=== PATIENT | female | born 1955 | race Caucasian/White ===

== ENCOUNTER 2017-04-07 06:47 | Day surgery (SDC) | payer BC ==
[2017-04-02 15:33] VITALS: BMI 34.9
[~2017-04-07 06:47] MED LIST: LACTATED RINGERS 1,000 ML IV SCH
[2017-04-07 07:13] VITALS: TEMP 97.6
[2017-04-07 07:21] LABS: Glucose,Whole Blood 136 mg/dL (75-99)
[2017-04-07] MEDS ORDERED: fentaNYL (PF) 50 MCG/ML 2 ML AMP ONE (07:44)
[2017-04-07] MEDS ORDERED: PROPOFOL 10 MG/ML 20 ML VIAL IV ONE (07:44)
--- NOTE | 2017-04-07 07:56 | P.GSHP ---
History of Present Illness H&P Date: 04/07/17 Chief Complaint: Screening colonoscopy This is a 61-year-old female referred from Dr. Sabina Candelario. Patient rents today for screening colonoscopy. Her last colonoscopy was over 10 years ago. Past Medical History Past Medical History: Diabetes Mellitus, Hyperlipidemia, Hypertension, Sleep Apnea/CPAP/BIPAP History of Any Multi-Drug Resistant Organisms: None Reported Past Surgical History: Cholecystectomy, Hysterectomy Past Anesthesia/Blood Transfusion Reactions: No Reported Reaction Smoking Status: Former smoker - Past Family History Father Family Medical History: Cancer Additional Family Medical History / Comment(s): leukemia Medications and Allergies Home Medications Medication Instructions Recorded Confirmed Type Aspirin [Adult Low Dose Aspirin EC] 81 mg PO DAILY 04/02/17 04/07/17 History Atorvastatin [Lipitor] 20 mg PO Q48H 04/02/17 04/07/17 History Cholecalciferol (Vitamin D3) 1 drop PO DAILY 04/02/17 04/07/17 History [Vitamin D3] Glimepiride [Amaryl] 2 mg PO DAILY 04/02/17 04/07/17 History Losartan Potassium 100 mg PO DAILY 04/02/17 04/07/17 History amLODIPine [Norvasc] 5 mg PO QAM 04/02/17 04/07/17 History metFORMIN HCL [metFORMIN HCL] 1,000 mg PO TID 04/02/17 04/07/17 History Allergies Allergy/AdvReac Type Severity Reaction Status Date / Time suture Allergy Rash/Hives Verified 04/02/17 15:24 Surgical - Exam Vital Signs Temp Pulse Resp BP Pulse Ox 97.6 F 103 H 20 158/60 98 04/07/17 07:06 04/07/17 07:06 04/07/17 07:06 04/07/17 07:06 04/07/17 07:06 - General well developed, no distress - Eyes PERRL - ENT normal pinna - Neck no masses - Respiratory normal expansion - Cardiovascular Rhythm: regular - Abdomen Abdomen: soft, non tender Results - Labs Abnormal Lab Results - Last 24 Hours (Table) 04/07/17 Range/Units 07:11 POC Glucose (mg/dL) 136 H (75-99) mg/dL Assessment and Plan Assessment: We'll perform screening colonoscopy.
--- NOTE | 2017-04-07 08:13 | P.OP ---
Date of Procedure: 04/07/17 Preoperative Diagnosis: Screening colonoscopy Postoperative Diagnosis: Diverticulosis External hemorrhoids Procedure(s) Performed: Colonoscopy Anesthesia: MAC Surgeon: Chad Burton Pathology: none sent Condition: stable Disposition: PACU Description of Procedure: The patient's placed on the endoscopy table in the lateral position. She received IV sedation. Digital rectal exam was performed which revealed external hemorrhoids. Flexible colonoscope was then placed patient anus passed throughout the entire colon. The ileocecal valve was visualized. The cecum, ascending and transverse colon appeared normal. In the descending and sigmoid colon there was evidence of diverticulosis. There is known to diverticulitis. Scope was then brought back the rectum and this appeared normal. Scope was withdrawn for patient.
[2017-04-07 08:44] VITALS: BP 123/81; PULSE 77; RESP 18
--- NOTE | 2017-04-10 09:25 | CDI ---
Dr. Josephine Bonilla, Colonoscopy OP report procedure description states "There is known to diverticulitis", but no documentation of diverticulitis in post operative diagnosis. Please clarify whether the patient is having diverticulitis. Sincerely, Amos Garcia--sergeant of officers Keerthi Floyd MBA, BENEFITS DIRECTOR, [facility] [place], [facility] [phone] [facility]
== END 2017-04-07 08:53 | disposition home or self-care (01) ==
LOC: ORWHC2ENDO 06:47
PROVIDERS: ATTEND Surgery
DX: Z12.11 Encounter for screening for malignant neoplasm of colon (principal); K57.30 Diverticulosis of large intestine without perforation or abscess without bleeding; K64.4 Residual hemorrhoidal skin tags; I10 Essential (primary) hypertension; E78.5 Hyperlipidemia, unspecified; G47.33 Obstructive sleep apnea (adult) (pediatric); E11.9 Type 2 diabetes mellitus without complications; Z91.048 Other nonmedicinal substance allergy status; Z79.84 Long term (current) use of oral hypoglycemic drugs; Z79.82 Long term (current) use of aspirin; Z79.899 Other long term (current) drug therapy; Z87.891 Personal history of nicotine dependence; Z90.49 Acquired absence of other specified parts of digestive tract; Z99.89 Dependence on other enabling machines and devices; Z80.6 Family history of leukemia
CPT/HCPCS: J3010; J2704; G0121

== ENCOUNTER → 2018-01-01 | Outpatient (CLI) | payer BC ==
--- NOTE | 2018-01-04 09:23 | MM ---
Reason for exam: screening (asymptomatic). Last mammogram was performed 4 years ago. History: Patient is postmenopausal. Family history of premenopausal breast cancer in cousin at age 45. Benign excisional biopsy of the right breast, February 04, 2001. Physical Findings: A clinical breast exam by your physician is recommended on an annual basis and results should be correlated with mammographic findings. MG 3D Screening Mammo W/Cad Bilateral CC and MLO view(s) were taken. Prior study comparison: January 06, 2014, bilateral MG screening mammo w CAD. November 26, 2012, bilateral digital screening mammo w/CAD. The breast tissue is heterogeneously dense. This may lower the sensitivity of mammography. Stable benign calcifications. There is no discrete abnormality. No significant changes when compared with prior studies. ASSESSMENT: Benign, BI-RAD 2 RECOMMENDATION: Routine screening mammogram of both breasts in 1 year.
== END | disposition home or self-care (01) ==
LOC: RADMAMWWP 09:31
PROVIDERS: ATTEND Family Medicine
DX: Z12.31 Encounter for screening mammogram for malignant neoplasm of breast (principal)
CPT/HCPCS: 77063; 77067

== ENCOUNTER → 2019-02-14 | Outpatient (CLI) | payer MEDICARE, BC ==
--- NOTE | 2019-02-14 11:28 | MM ---
Reason for exam: screening (asymptomatic). Last mammogram was performed 1 year and 1 month ago. History: Patient is postmenopausal. Family history of premenopausal breast cancer in cousin at age 45. Benign excisional biopsy of the right breast, February 04, 2001. Physical Findings: A clinical breast exam by your physician is recommended on an annual basis and results should be correlated with mammographic findings. MG 3D Screening Mammo W/Cad Bilateral CC and MLO view(s) were taken. Prior study comparison: January 01, 2018, bilateral MG 3d screening mammo w/cad. January 06, 2014, bilateral MG screening mammo w CAD. Benign appearing bilateral calcifications. No suspicious abnormality. No significant changes when compared with prior studies. ASSESSMENT: Benign, BI-RAD 2 RECOMMENDATION: Routine screening mammogram of both breasts in 1 year.
== END | disposition home or self-care (01) ==
LOC: RADMAMWWP 08:36
PROVIDERS: ATTEND Family Medicine
DX: Z12.31 Encounter for screening mammogram for malignant neoplasm of breast (principal)
CPT/HCPCS: 77063; 77067

== ENCOUNTER → 2019-08-22 | Outpatient (CLI) | payer MEDICARE, BC ==
--- NOTE | 2019-08-22 11:43 | NM ---
EXAMINATION TYPE: NM stress cardiolite complete DATE OF EXAM: 08/22/2019 COMPARISON: NONE HISTORY: R07.89 TECHNIQUE: After the intravenous administration of 9.6 mCi Tc 99m Sestamibi - Rest images obtained 7 0 minutes post injection. The patient exercised using a TESSIE protocol and 1 minute prior to peak e xercise was injected with 26.7 mCi Tc 99m Sestamibi - Stress images obtained 27 minutes post injectio n. Patient achieved greater than 85% of predicted maximal heart rate. FINDINGS: Targeted heart rate was achieved during performance of the study. Review of stress and rest SPECT lorena ges demonstrates decreased uptake along the anteroseptal left ventricle on stress and rest images mor e so on rest images. Gated analysis shows normal wall motion with an estimated left ventricular ejec tion fraction of 55 %. IMPRESSION: No scintigraphic evidence for reversible ischemia
--- NOTE | 2019-08-23 15:16 | EST ---
EXERCISE STRESS AGE: 63 SEX: F HT: 5'3" WT: 200 lbs. PROTOCOL: Cardiolite Rd STAGE: 3 DURATION OF EXERCISE: 6:13 HEART RATE REST: 78 BLOOD PRESSURE REST: 144/87 MAXIMUM HEART RATE ACHIEVED: 138 MAXIMUM BLOOD PRESSURE: 214/80 85% MPHR: 132 100% MPHR: 155 METS: 7.5 INDICATIONS: Chest Pressure, shortness of breath Baseline EKG shows sinus rhythm with right bundle branch block. Patient exercised on Rd protocol for a total of 6 minutes achieving 7 METS, 85% of predicted maximal heart rate without chest pain or diagnostic ST-segment depression. CONCLUSION: 1. Average exercise tolerance. 2. Inconclusive EKG part of the stress test due to baseline EKG abnormalities. 3. Cardiolite portion of the stress test will be reported separately. MMODL / IJN: [id number] /
== END | disposition home or self-care (01) ==
LOC: RADNMMAIN 08:00
PROVIDERS: ATTEND Family Medicine
DX: R07.89 Other chest pain (principal)
CPT/HCPCS: 93017; 78452; A9500

== ENCOUNTER → 2020-06-12 | Outpatient (CLI) | payer MEDICARE, BC ==
--- NOTE | 2020-06-12 12:13 | XR ---
EXAMINATION TYPE: XR Hip Complete RT DATE OF EXAM: 06/12/2020 COMPARISON: NONE HISTORY: Pain TECHNIQUE: 2 views submitted FINDINGS: There is no evidence of erosive change or acute fracture. Diffuse osteopenia. Mild narrowing of the r ight hip. Chronic appearing deformity of the right acetabulum. IMPRESSION: 1. Mild arthropathy.
--- NOTE | 2020-06-12 12:14 | XR ---
EXAM TYPE: LUMBAR SPINE X RAY SERIES COMPARISON: NONE HISTORY: Pain TECHNIQUE: 4 views are submitted. FINDINGS: Alignment is anatomic. The pedicles are intact. The transverse processes are intact. There is diff use osteopenia with multilevel degenerative disc disease and severe changes at L4-5. Multilevel facet arthropathy. IMPRESSION: 1. Diffuse osteopenia with multilevel degenerative disc disease and facet arthropathy.
== END | disposition home or self-care (01) ==
LOC: RADXRMAIN 10:10
PROVIDERS: ATTEND Family Medicine
DX: M12.851 Other specific arthropathies, not elsewhere classified, right hip (principal); M51.36 Other intervertebral disc degeneration, lumbar region; M47.816 Spondylosis without myelopathy or radiculopathy, lumbar region; M85.88 Other specified disorders of bone density and structure, other site
CPT/HCPCS: 72100; 73502

== ENCOUNTER → 2023-04-28 | Outpatient (CLI) | payer MEDICARE, BC ==
--- NOTE | 2023-04-29 08:53 | MM ---
Reason for Exam: Screening (asymptomatic). Last screening mammogram was performed 12 month(s) ago. Patient History: Menarche at age 9. First Full-Term at age 22. Hysterectomy at age 43. Postmenopausal. Patient has history of breast feeding. 02/04/2001, Benign Excisional Biopsy on the right side. Maternal cousin had breast cancer, age 45. Risk Values: Rachana 5 year model risk: 2.0%. NCI Lifetime model risk: 6.1%. Prior Study Comparison: 01/01/2018 Bilateral Screening Mammogram, [facility]. 02/14/2019 Bilateral Screening Mammogram, [facility]. 04/25/2022 Bilateral MG 3D screening mammo w/cad, [facility]. Tissue Density: The breast tissue is heterogeneously dense. This may lower the sensitivity of mammography. Findings: Analyzed By CAD. There is no suspicious group of microcalcifications or new suspicious mass in either breast. Calcification. There is an asymmetric density in the upper outer margin of the right breast possibly related to lymph node. Overall Assessment: Incomplete: need additional imaging evaluation, BI-RAD 0 Management: Special View Mammogram of the right breast. . Patient should continue monthly self-breast exams. A clinical breast exam by your physician is recommended on an annual basis. This exam should not preclude additional follow-up of suspicious palpable abnormalities. Note on Rachana scores and lifetime risk: 1. A Rachana score greater than 3% is considered moderate risk. If this is the case, consider specialist referral to assess eligibility for a risk reducing agent. 2. If overall lifetime risk for the development of breast cancer is 20% or higher, the patient may qualify for future screening with alternating mammogram and breast MRI. Electronically signed and approved by: Duane Keenan M.D. Radiologis
== END | disposition home or self-care (01) ==
LOC: RADMAMWWP 10:07
PROVIDERS: ATTEND Family Medicine
DX: Z12.31 Encounter for screening mammogram for malignant neoplasm of breast (principal); Z78.0 Asymptomatic menopausal state; Z80.3 Family history of malignant neoplasm of breast
CPT/HCPCS: 77063; 77067

== ENCOUNTER → 2024-06-09 | Outpatient (CLI) | payer MEDICARE, BC ==
--- NOTE | 2024-06-09 09:28 | MM ---
Reason for Exam: Screening (asymptomatic). Last mammogram was performed 1 year(s) and 2 month(s) ago. Patient History: Menarche at age 9. First Full-Term at age 22. Hysterectomy at age 43. Postmenopausal. Patient has history of breast feeding. 02/04/2001, Benign Excisional Biopsy on the right side. Maternal cousin had breast cancer, age 45. Risk Values: Rachana 5 year model risk: 2.0%. NCI Lifetime model risk: 5.9%. Prior Study Comparison: 02/14/2019 Bilateral Screening Mammogram, [facility]. 04/25/2022 Bilateral MG 3D screening mammo w/cad, [facility]. 04/28/2023 Bilateral MG 3D screening mammo w/cad, [facility]. Tissue Density: The breasts are heterogeneously dense, which may obscure small masses. Findings: Analyzed By CAD. There is no suspicious group of microcalcifications or new suspicious mass in either breast. Overall Assessment: Benign, BI-RAD 2 Management: Screening Mammogram of both breasts in 1 year. . Patient should continue monthly self-breast exams. A clinical breast exam by your physician is recommended on an annual basis. This exam should not preclude additional follow-up of suspicious palpable abnormalities. Note on Rachana scores and lifetime risk: 1. A Rachana score greater than 3% is considered moderate risk. If this is the case, consider specialist referral to assess eligibility for a risk reducing agent. 2. If overall lifetime risk for the development of breast cancer is 20% or higher, the patient may qualify for future screening with alternating mammogram and breast MRI. [facility], , 06/09/2024 9:25 AM. Electronically signed and approved by: Jorge Hill M.D. Radiologis
== END | disposition home or self-care (01) ==
LOC: RADMAMWWP 09:10
PROVIDERS: ATTEND Family Medicine
DX: Z12.31 Encounter for screening mammogram for malignant neoplasm of breast (principal); R92.333 Mammographic heterogeneous density, bilateral breasts; Z78.0 Asymptomatic menopausal state; Z80.3 Family history of malignant neoplasm of breast
CPT/HCPCS: 77063; 77067